=== PATIENT | male | born 1950 | race Caucasian/White ===

== ENCOUNTER 2018-12-31 18:23 | Emergency (ER) | payer MEDICARE, BC ==
[~2018-12-31] VITALS: Ht 175.3 cm; Wt 80.0 kg
[~2018-12-31 18:23] MED LIST: BAYER ASPIRIN E81 MG PO; CEPHALEXIN500 MG OR; FLUARIX QUADRIV1 IN1 IM; LISINOPRIL10 MG OR; LISINOPRIL10 MG PO; LISINOPRIL20 MG PO; VIAGRA50 MG PO
[2018-12-31] MEDS ORDERED: LISINOPRIL20 M1 PO (18:59)
[2018-12-31 19:10] VITALS: BP 139/77
== END 2018-12-31 19:10 | disposition home or self-care (01) ==
LOC: ED 18:23
PROC: 0HQGXZZ Repair Left Hand Skin, External Approach (ICD-10-PCS; principal; 2018-12-31)
DX: S61.432A Puncture wound without foreign body of left hand, initial encounter (principal); I10 Essential (primary) hypertension; W26.0XXA Contact with knife, initial encounter; Y93.G3 Activity, cooking and baking; Y92.009 Unspecified place in unspecified non-institutional (private) residence as the place of occurrence of the external cause